=== PATIENT | female | born 1940 | race Caucasian/White ===

== ENCOUNTER 2017-09-04 08:15 | Day surgery (SDC) | payer MEDICARE ==
[2017-09-01 13:16] VITALS: BMI 20.1
[2017-09-04] MEDS ORDERED: Bupivacaine/Epinephrine 0.25% 30 ML VIAL ONE (09:16)
[2017-09-04] MEDS ORDERED: CEFAZOLIN/Water 2 GM/20 ML SYRINGE ONE (09:34)
[2017-09-04] MEDS ORDERED: Fentanyl 100 MCG/2 ML VIAL ONE (11:00)
[2017-09-04] MEDS ORDERED: EPINEPHrine 1 MG/ML AMP ONE (11:10)
[2017-09-04] MEDS ORDERED: EPINEPHrine 1 MG/10 ML Abboject SYRINGE ONE (12:14)
[2017-09-04] MEDS ORDERED: Propofol 200 MG/20 ML VIAL ONE (12:14)
--- NOTE | 2017-09-04 13:27 | OP ---
PREOPERATIVE DIAGNOSIS: Open wound, right leg. POSTOPERATIVE DIAGNOSIS: Open wound, right leg. PROCEDURES: 1. Debridement of right leg in preparation for skin grafting (4 cm2) [id number]. 2. Split thickness skin graft, right leg (4 cm2) [id number]. 3. Placement of wound VAC, right leg (4 cm) [id number]. DESCRIPTION OF THE PROCEDURE: Following induction of adequate anesthesia, the patient was prepped a nd draped in the usual sterile fashion in the supine position. The patient's 5-month long wound was debrided back to sharp edges. It was then irrigated. They cannot be closed primarily. A split-thickness skin graft was harvested from the ipsilateral leg and harvested with 12.5 one thou sands of an inch and meshed to one half to one. It was secured into place using interrupted 4-0 chr omic sutures. To enhance survival of the skin graft, a wound VAC was placed in the usual fashion. The patient yakelin erated the procedure well.
--- NOTE | 2017-09-04 22:09 | EKG ---
Test Reason : PREOP Blood Pressure : / mmHG Vent. Rate : 070 BPM Atrial Rate : 070 BPM P-R Int : 152 ms QRS Dur : 092 ms QT Int : 410 ms P-R-T Axes : -67 019 048 degrees QTc Int : 442 ms Unusual P axis, possible ectopic atrial rhythm Abnormal ECG No previous ECGs available Confirmed by DR. Karla GARCIAS MD ([id number]) on 09/04/2017 10:08:43 PM Referred By: SHEKHAR Confirmed By:DR. Karla GARCIAS MD
== END 2017-09-04 13:25 | disposition home or self-care (01) ==
LOC: SDC 08:15
PROVIDERS: ATTEND Plastic Surgery
PROC: 0HXKXZZ Transfer Right Lower Leg Skin, External Approach (ICD-10-PCS; principal; 2017-09-04)
DX: S81.801A Unspecified open wound, right lower leg, initial encounter (principal); Z88.8 Allergy status to other drugs, medicaments and biological substances; Z90.49 Acquired absence of other specified parts of digestive tract; Z98.890 Other specified postprocedural states
CPT/HCPCS: 93005; 93010; J0171; J2704; J3010